=== PATIENT | female | born 1955 | race Asian ===

== ENCOUNTER 2020-06-03 05:19 | Day surgery (SDC) | payer OTHER, MEDICAID ==
[2020-05-30 13:40] LABS: COVID AG,FIA SOURCE NASOPHARYNGEAL
[~2020-06-03] VITALS: Ht 165.1 cm; Wt 66.8 kg
[2020-06-03] MEDS ORDERED: RINGERS SOLUTION,LACTATED 500 ML IV ONE ×2 (05:30→05:47)
[2020-06-03] MEDS ORDERED: MOXIFLOXACIN HCL 0.5% 3 ML OPHTHALMIC SOLUTION ONE (05:42)
[2020-06-03] MEDS ORDERED: TETRACAINE HCL/PF 0.5% 4 ML OPHTHALMIC SOLUTION ONE ×2 (05:42→17:38)
[2020-06-03] MEDS ORDERED: TROPICAMIDE 1% 2 ML OPHTHALMIC SOLUTION ONE (05:42)
[2020-06-03] MEDS ORDERED: KETOROLAC TROMETHAMINE 0.5% 5 ML OPHTHALMIC SOLUTION ONE (05:42)
[2020-06-03] MEDS ORDERED: CYCLOPENTOLATE HCL 1% 2 ML OPHTHALMIC SOLUTION ONE (05:43)
[2020-06-03] MEDS ORDERED: PHENYLEPHRINE HCL 2.5% 2 ML OPHTHALMIC SOLUTION ONE (05:43)
[2020-06-03] MEDS: KETOROLAC TROMETHAMINE 0.5% 5 ML OPHTHALMIC SOLUTION OD SCH ×3 (06:00→06:30)
[2020-06-03] MEDS ORDERED: TETRACAINE HCL/PF 0.5% 4 ML OPHTHALMIC SOLUTION OD ONE (06:00)
[2020-06-03] MEDS: PHENYLEPHRINE HCL 2.5% 2 ML OPHTHALMIC SOLUTION OD SCH ×3 (06:11→06:30)
[2020-06-03] MEDS: TROPICAMIDE 1% 2 ML OPHTHALMIC SOLUTION OD SCH ×3 (06:11→06:30)
[2020-06-03] MEDS: MOXIFLOXACIN HCL 0.5% 3 ML OPHTHALMIC SOLUTION OD SCH ×3 (06:14→06:30)
[2020-06-03 06:19] LABS: GLUCOMETER DEV NAME(LOC) SDS.; GLUCOSE,POINT OF CARE 133 MG/DL (70-110)
[2020-06-03] MEDS: CYCLOPENTOLATE HCL 1% 2 ML OPHTHALMIC SOLUTION OD SCH ×3 (06:23→06:30)
[2020-06-03] MEDS ORDERED: FentaNYL CITRATE PF 100 MCG/2 ML VIAL IVP ONE (12:00)
[2020-06-03] MEDS ORDERED: MIDAZOLAM HCL 2 MG/2 ML VIAL IVP ONE (12:00)
[2020-06-03] MEDS ORDERED: POVIDONE-IODINE 10% 15 ML SOLUTION UD ONE (17:38)
[2020-06-03] MEDS ORDERED: CHONDR SULF A SOD/HYALURONATE 1.05 ML KIT IO ONE (17:38)
[2020-06-03] MEDS ORDERED: NEOMYCIN/POLYMYXIN B/DEXAMETH 3.5 GM OPHTHALMIC OINTMENT ONE (17:38)
[2020-06-03] MEDS ORDERED: LIDOCAINE/PF 1% 2 ML VIAL ONE (17:38)
[2020-06-03] MEDS ORDERED: EPINEPHrine 1:1,000 [1 MG/ML] AMP ONE (17:38)
[2020-06-03] MEDS ORDERED: BALANCED SALT 15 ML OPHTHALMIC IRRIG.SOLN ONE (17:38)
== END 2020-06-03 08:30 | disposition home or self-care (01) ==
LOC: SURGERY 05:19
PROVIDERS: ATTEND Ophthalmology
DX: E11.36 Type 2 diabetes mellitus with diabetic cataract (principal); H25.11 Age-related nuclear cataract, right eye; I10 Essential (primary) hypertension; Z79.899 Other long term (current) drug therapy
CPT/HCPCS: 66984; 82962; 87426; 93005; A9575; C9803; J0171; J2250; J3010; J3490; J7120; V2632

== ENCOUNTER 2020-06-17 05:58 | Day surgery (SDC) | payer OTHER, MEDICAID ==
[~2020-06-17] VITALS: Ht 160 cm; Wt 65.9 kg
[~2020-06-17 05:58] MED LIST: ATOR20TA65 PO; CYCLOPENTOLATE HCL 1% 2 ML OPHTHALMIC SOLUTION ONE; KETOROLAC TROMETHAMINE 0.5% 5 ML OPHTHALMIC SOLUTION ONE; LOSA50TA37 PO; METF-446 PO; MOXIFLOXACIN HCL 0.5% 3 ML OPHTHALMIC SOLUTION ONE; PHENYLEPHRINE HCL 2.5% 2 ML OPHTHALMIC SOLUTION ONE; RINGERS SOLUTION,LACTATED 500 ML IV ONE; TETRACAINE HCL/PF 0.5% 4 ML OPHTHALMIC SOLUTION ONE; TROPICAMIDE 1% 2 ML OPHTHALMIC SOLUTION ONE
[2020-06-17] MEDS ORDERED: HYALURONATE SOD 8.5MG/0.85ML 10 MG/ML SYRINGE IO ONE (05:59)
[2020-06-17] MEDS ORDERED: HYALURONATE SOD/CHONDROITIN SOD 0.5 ML VIAL IO ONE (05:59)
[2020-06-17] MEDS ORDERED: NEOMYCIN/POLYMYXIN B/DEXAMETH 3.5 GM OPHTHALMIC OINTMENT OS ONE (05:59)
[2020-06-17] MEDS ORDERED: PrednisoLONE ACETATE 1% 5 ML OPHTHALMIC SUSPENSION OS ONE (05:59)
[2020-06-17] MEDS ORDERED: TETRACAINE HCL/PF 0.5% 4 ML OPHTHALMIC SOLUTION OS ONE ×2 (05:59→06:00)
[2020-06-17] MEDS ORDERED: EPINEPHrine 1:1,000 [1 MG/ML] AMP IM ONE (05:59)
[2020-06-17] MEDS ORDERED: POVIDONE-IODINE 10% 15 ML SOLUTION UD TP ONE (05:59)
[2020-06-17] MEDS ORDERED: BALANCED SALT 15 ML OPHTHALMIC IRRIG.SOLN OS ONE (05:59)
[2020-06-17] MEDS ORDERED: LIDOCAINE/PF 1% 2 ML VIAL IM ONE (05:59)
[2020-06-17 06:20] LABS: COVID AG,FIA SOURCE NASOPHARYNGEAL
[2020-06-17] MEDS: PHENYLEPHRINE HCL 2.5% 2 ML OPHTHALMIC SOLUTION OS SCH ×3 (06:29→06:51)
[2020-06-17] MEDS: TROPICAMIDE 1% 2 ML OPHTHALMIC SOLUTION OS SCH ×3 (06:29→06:51)
[2020-06-17] MEDS: CYCLOPENTOLATE HCL 1% 2 ML OPHTHALMIC SOLUTION OS SCH ×3 (06:29→06:51)
[2020-06-17] MEDS: MOXIFLOXACIN HCL 0.5% 3 ML OPHTHALMIC SOLUTION OS SCH ×3 (06:30→06:51)
[2020-06-17] MEDS: KETOROLAC TROMETHAMINE 0.5% 5 ML OPHTHALMIC SOLUTION OS SCH ×3 (06:30→06:51)
[2020-06-17 07:17] LABS: GLUCOMETER DEV NAME(LOC) SDS.; GLUCOSE,POINT OF CARE 129 MG/DL (70-110)
[2020-06-17] MEDS ORDERED: MIDAZOLAM HCL 2 MG/2 ML VIAL IVP ONE (12:00)
[2020-06-17] MEDS ORDERED: FentaNYL CITRATE PF 100 MCG/2 ML VIAL IVP ONE (12:00)
== END 2020-06-17 08:10 | disposition home or self-care (01) ==
LOC: SURGERY 05:58
PROVIDERS: ATTEND Ophthalmology
DX: E11.36 Type 2 diabetes mellitus with diabetic cataract (principal); H25.12 Age-related nuclear cataract, left eye; I10 Essential (primary) hypertension; Z98.890 Other specified postprocedural states; E78.00 Pure hypercholesterolemia, unspecified; Z79.84 Long term (current) use of oral hypoglycemic drugs; Z79.899 Other long term (current) drug therapy
CPT/HCPCS: 66984; 82962; 87426; 93005; C9803; J0171; J2250; J3010; J3490; J7120; V2632